=== PATIENT | male | born 1990 ===

== ENCOUNTER 2016-07-29 12:15 | Emergency (ER) | payer SELFPAY ==
[2016-07-29 12:38] VITALS: BP 128/53; PULSE 77; RESP 18; TEMP 98; O2SAT 100
--- NOTE | 2016-07-29 12:52 | ED PDOC ---
Arrival/HPI - General Chief Complaint: Trauma Time Seen by Provider: 07/29/16 12:40 Historian: Patient - History of Present Illness Narrative History of Present Illness (Text): 07/29/16 12:48 25 year old male who denies past medical history presents to the emergency department complaining of cough and chest discomfort after fall while skiing yesterday. Patient states he felt some chest pain yesterday to his left chest from the fall which has since resolved. Today he reports cough upon inspiration with reddish phlegm. He states he did not have a cough yesterday. No other complaints at this time. No shortness of breath, vomiting, or dizziness. Time/Duration: 24 hours Symptom Onset: Gradual Symptom Course: Unchanged Modifying Factors (Text): None Associated Symptoms (Text): None Past Medical History - Provider Review Nursing Documentation Reviewed: Yes - Infectious Disease Hx of Infectious Diseases: None - Psychiatric Hx Substance Use: No Family/Social History - Physician Review Nursing Documentation Reviewed: Yes Family/Social History: Unknown Family HX Smoking Status: Never Smoked Hx Alcohol Use: Yes Frequency of alcohol use: Socially Hx Substance Use: No Allergies/Home Meds Allergies/Adverse Reactions: Allergies No Known Allergies Allergy (Verified 07/29/16 12:38) Home Medications: Home Meds Medication Instructions Recorded Confirmed No Known Home Med 07/29/16 07/29/16 Review of Systems - Physician Review All systems were reviewed & negative as marked: Yes - Review of Systems Respiratory: Cough. absent: SOB Cardiovascular: absent: Chest Pain Gastrointestinal: absent: Vomiting Neurological: absent: Dizziness Physical Exam Vital Signs Reviewed: Yes Vital Signs Temp Pulse Resp BP Pulse Ox 07/29/16 12:30 98 F 77 18 128/53 L 100 Temperature: Afebrile Blood Pressure: Normal Pulse: Regular Respiratory Rate: Normal Appearance: Positive for: Well-Appearing, Non-Toxic, Comfortable Pain Distress: None Mental Status: Positive for: Alert and Oriented X 3 - Systems Exam Head: Present: Atraumatic, Normocephalic Pupils: Present: PERRL Extroacular Muscles: Present: EOMI Conjunctiva: Present: Normal Mouth: Present: Moist Mucous Membranes Neck: Present: Normal Range of Motion Respiratory/Chest: Present: Clear to Auscultation, Good Air Exchange, Other (No chest wall tenderness). No: Respiratory Distress, Accessory Muscle Use Cardiovascular: Present: Regular Rate and Rhythm, Normal S1, S2. No: Murmurs Abdomen: Present: Normal Bowel Sounds. No: Tenderness, Distention, Peritoneal Signs Back: Present: Normal Inspection Upper Extremity: Present: Normal Inspection. No: Cyanosis, Edema Lower Extremity: Present: Normal Inspection. No: Edema Neurological: Present: GCS=15, CN II-XII Intact, Speech Normal Skin: Present: Warm, Dry, Normal Color. No: Rashes Psychiatric: Present: Alert, Oriented x 3, Normal Insight, Normal Concentration Medical Decision Making ED Course and Treatment: Impression: 25 year old male who denies past medical history presents to the emergency department complaining of cough and chest discomfort after fall while skiing yesterday. Differential Diagnosis included but are not limited to: Chest Wall Pain, Cough Plan: -- CXR -- Reassess and disposition Progress Notes: CXR Impression: As read by me, no pneumothorax, no pneumonia, no cardiomegaly, no infiltrates 07/29/16 14:11 Xrays negative. Cough post likely brochitis or irritation from the fall. Will have him f/u with his pmd or our clinic in 2-3days. - RAD Interpretation Radiology Orders: 07/29/16 12:47 RIBS BILATERAL W/PA CHEST [RAD] Stat - Scribe Statement The provider has reviewed the documentation as recorded by the Elias Dickey Provider Scribe Attestation: All medical record entries made by the Scribe were at my direction and personally dictated by me. I have reviewed the chart and agree that the record accurately reflects my personal performance of the history, physical exam, medical decision making, and the department course for this patient. I have also personally directed, reviewed, and agree with the discharge instructions and disposition. Disposition/Present on Arrival - Present on Arrival Any Indicators Present on Arrival: No History of DVT/PE: No History of Uncontrolled Diabetes: No Urinary Catheter: No History of Decub. Ulcer: No History Surgical Site Infection Following: None - Disposition Have Diagnosis and Disposition been Completed?: Yes Diagnosis: Chest wall contusion Disposition: HOME/ ROUTINE Disposition Time: 14:12 Patient Plan: Discharge Patient Problems: Current Active Problems Problem Status Diagnosed Chest wall contusion Acute Condition: IMPROVED Discharge Instructions (ExitCare): Chest Wall Pain (ED) Additional Instructions: Mr Olguin, thank you for letting us take care of you today. Your provider was Dr. Garcia. You were treated for Chest wall pain. The emergency medical care you received today was directed at your acute symptoms. If you were prescribed any medication, please fill it and take as directed. It may take several days for your symptoms to resolve. Return to the Emergency Department if your symptoms worsen, do not improve, or if you have any other problems. Please contact your doctor or call one of the physicians/clinics you have been referred to that are listed on the Patient Visit Information form that is included in your discharge packet. Bring any paperwork you were given at discharge with you along with any medications you are taking to your follow up visit. Our treatment cannot replace ongoing medical care by a primary care provider (PCP) outside of the emergency department. Thank you for allowing the [facility] team to be part of your care today. If you had an X-Ray or CT scan: A Radiologist will review the ED reading if any change in treatment is needed we will contact you. If you had a blood, urine, or wound culture: It will take several days for the results, if any change in treatment is needed we will contact you. If you had an STI test: It will take 48 hours for the results. Please call after 1 week if you have not heard back. Referrals: [facility] [place] [facility], [Non-Staff] - Follow up with primary [facility] at [facility] [Outside] - Follow up with primary
--- NOTE | 2016-07-29 14:29 | RAD ---
PROCEDURE: Radiographs of the chest and bilateral ribs HISTORY: fall on chest r/o fx; cough r/o pna COMPARISON: None available. TECHNIQUE: Frontal radiograph of the chest and multiple oblique radiographs of the bilateral ribs were obtained. FINDINGS: RIGHT RIBS: No fracture or focal lesion visualized. LEFT RIBS: No fracture or focal lesion visualized. LUNGS: Clear. PLEURA: No pneumothorax or pleural fluid. CARDIOVASCULAR: Normal sized heart. No pulmonary vascular congestion. OTHER FINDINGS: None. IMPRESSION: No evidence of acute rib fracture, pneumothorax or pneumonia.
== END 2016-07-29 14:16 | disposition home or self-care (01) ==
LOC: ED 12:15 → MERGE 12:15 → ED 14:16
DX: S20.219A Contusion of unspecified front wall of thorax, initial encounter (principal); W18.30XA Fall on same level, unspecified, initial encounter; Y93.23 Activity, snow (alpine) (downhill) skiing, snowboarding, sledding, tobogganing and snow tubing; Y92.89 Other specified places as the place of occurrence of the external cause